=== PATIENT | female | born 1985 | race Caucasian/White ===

== ENCOUNTER 2021-08-24 15:43 | Inpatient (IN) | payer SELFPAY ==
[2021-08-24 16:32] LABS: Actual Bicarbonate (HCO3v) 4 mEq/L (22-28); Base Excess -26.3 mEq/L (-2.0 to +3.0); Calcium, Ionized (venous) 1.29 mmol/L (1.16-1.32); Chloride (VBG) 98 mmol/L (98-106); Hemoglobin (Hb) 10.5 g/dL (11.7-15.5); Potassium (VBG) 5.82 mmol/L (3.70-5.30); Puncture Site Other Site; Sodium 128.4 mmol/L (133-146); pH (venous) 6.97 (7.32-7.43)
[2021-08-24 16:37] LABS: #Basophils 0.1 10x3/uL (0.0-0.2); #Eosinphils 0.1 10x3/uL (0.0-0.5); #Monocytes 0.5 10x3/uL (0.0-1.1); #Neutrophils 6.3 10x3/uL (1.5-8.4); %Basophils 1.6 % (0.0-2.0); %Lymphocytes 11.6 % (18.0-47.0); %Monocytes 6.5 % (0.0-10.0); %Neutrophils 76.3 % (40.0-75.0); Mean Corpuscular HGB CONC 30.2 g/dL (32.0-36.0); Mean Corpuscular Hemoglobin 27.1 pg (27.0-33.0); Mean Corpuscular Volume 89.6 fl (81.6-98.3); Mean Platelet Volume 10.8 fl (7.4-10.4); Platelet Count 224 10x3/uL (150-450); RBC Distribution Width 15.9 % (11.5-14.5); Red Blood Cell (RBC) Count 3.47 10x6/uL (3.90-5.03); White Blood Cell (WBC) Count 8.3 10x3/uL (3.5-10.5)
[2021-08-24 16:38] LABS: Hemoglobin 9.4 g/dL (12.0-15.5)
[2021-08-24 16:46] LABS: Phosphorus 4.4 mg/dL (2.3-4.7)
[2021-08-24 16:48] LABS: ALT (SGPT) 16 U/L (8-55); AST (SGOT) 12 U/L (5-34); Albumin 3.9 g/dL (3.5-5.0); Alkaline Phosphatase 189 U/L (40-110); BUN (Urea Nitrogen) 19 mg/dL (7.0-18.7); Bilirubin, Total 0.3 mg/dL (0.2-1.2); Calc. Creatinine Clearance 0 mL/min (70-130); Calcium 8.9 mg/dL (7.8-10.44); Chloride 97 mmol/L (98-107); Globulin 3.6 g/dL (2.4-3.5); Lipase 14 U/L (8-78); Magnesium 2.1 mg/dL (1.6-2.6); Protein, Total 7.5 g/dL (6.0-8.3); Sodium 128 mmol/L (136-145)
[2021-08-24 16:57] LABS: Carbon Dioxide Less than 8 mmol/L (22-29); Glucose 766 mg/dL (70-105)
[2021-08-24] MEDS ORDERED: INSULIN REGULAR IN 0.9 % NACL 100 UNIT/100 ML BAG ONE (17:14)
[2021-08-24] MEDS ORDERED: Dextrose 5 %-0.45 % NaCl 1,000 ML IV PRN (17:38)
[2021-08-24] MEDS ORDERED: Sodium Chloride 0.9% 1,000 ML IV PRN ×4 (17:38)
[2021-08-24] MEDS ORDERED: D5 1/2 NS w/20 mEq KCL 1,000 ML IV PRN (17:38)
[2021-08-24] MEDS ORDERED: Electrolyte Replacement Protocol 1 EACH IVPB SCH (17:38)
[2021-08-24] MEDS ORDERED: Acetaminophen 325 MG TAB PO PRN (17:41)
[2021-08-24 18:06] LABS: BHCG - Serum Negative (NEGATIVE); Pregs Control Background? CLEAR/WHITE (CLR/WHITE); Pregs Control Bar Appear? YES (CONTROL BAR)
[2021-08-24 19:26] LABS: BUN (Urea Nitrogen) 21 mg/dL (7.0-18.7); Calc. Creatinine Clearance 0 mL/min (70-130); Calcium 8.7 mg/dL (7.8-10.44); Chloride 98 mmol/L (98-107); Magnesium 2.1 mg/dL (1.6-2.6); Potassium 5.7 mmol/L (3.5-5.1); Sodium 130 mmol/L (136-145)
[2021-08-24 19:29] LABS: Carbon Dioxide Less than 8 mmol/L (22-29); Glucose 769 mg/dL (70-105)
[2021-08-24 19:33] LABS: Bilirubin Neg (Negative); Blood, Urine 25 (Negative); Glucose, Urine (Dipstick) >=1000 mg/dL (Negative); Ketone, Urine 150 mg/dL (Negative); Leukocyte Negative (Negative); Nitrite Negative (Negative); Protein, Urine (Dipstick) 30 mg/dl (Neg-Trace); Urobilinogen Normal mg/dL (Less than 2)
[2021-08-24 19:36] LABS: Clarity Clear (Clear)
[2021-08-24 19:57] LABS: SARS-CoV-2 NAA Rapid Test Not Detected (NotDetected)
[2021-08-24 20:02] LABS: RBC/HPF 0-3 HPF (0-3); Squamous Epithelial 0-3 HPF (0-3); WBC/HPF 0-3 HPF (0-3); Yeast-Budding Rare HPF (None Seen)
[2021-08-24 20:37] LABS: ALT (SGPT) 14 U/L (8-55); AST (SGOT) 17 U/L (5-34); Albumin 3.4 g/dL (3.5-5.0); Alkaline Phosphatase 170 U/L (40-110); BUN (Urea Nitrogen) 21 mg/dL (7.0-18.7); Bilirubin, Total 0.2 mg/dL (0.2-1.2); Calc. Creatinine Clearance 0 mL/min (70-130); Calcium 8.3 mg/dL (7.8-10.44); Chloride 103 mmol/L (98-107); Globulin 3.3 g/dL (2.4-3.5); Potassium 4.9 mmol/L (3.5-5.1); Protein, Total 6.7 g/dL (6.0-8.3); Sodium 132 mmol/L (136-145)
[2021-08-24 20:40] LABS: Carbon Dioxide Less than 8 mmol/L (22-29); Glucose 649 mg/dL (70-105)
[2021-08-24] MEDS ORDERED: INSULIN REGULAR IN 0.9 % NACL 100 UNIT in Premix Bag 1 BAG IVPB SCH (21:00)
[2021-08-24 21:43] LABS: BUN (Urea Nitrogen) 22 mg/dL (7.0-18.7); Calc. Creatinine Clearance 51 mL/min (70-130); Calcium 8.1 mg/dL (7.8-10.44); Chloride 106 mmol/L (98-107); Potassium 4.4 mmol/L (3.5-5.1); Sodium 133 mmol/L (136-145)
[2021-08-24 21:44] LABS: Carbon Dioxide Less than 8 mmol/L (22-29); Glucose 552 mg/dL (70-105)
[2021-08-24] MEDS: Sodium Bicarbonate 50 MEQ, Admixture Fee 1 EACH in Sodium Chloride 0.45% 1,000 ML IV SCH (21:52)
[2021-08-24] MEDS: Gabapentin 400 MG CAP PO SCH (22:32)
[2021-08-24] MEDS ORDERED: Lorazepam 2 MG/ML VIAL SLOW IVP SCH (23:15)
[2021-08-24 23:56] LABS: Actual Bicarbonate (HCO3v) 7 mEq/L (22-28); Base Excess -20.7 mEq/L (-2.0 to +3.0); Calcium, Ionized (venous) 1.25 mmol/L (1.16-1.32); Chloride (VBG) 110 mmol/L (98-106); Hemoglobin (Hb) 8.6 g/dL (11.7-15.5); Potassium (VBG) 3.85 mmol/L (3.70-5.30); Puncture Site Other Site
[2021-08-25 00:13] LABS: Anion Gap 23 mmol/L (10-20); BUN (Urea Nitrogen) 20 mg/dL (7.0-18.7); Calc. Creatinine Clearance 63 mL/min (70-130); Calcium 8.2 mg/dL (7.8-10.44); Chloride 111 mmol/L (98-107); Glucose 268 mg/dL (70-105); Potassium 3.8 mmol/L (3.5-5.1); Sodium 138 mmol/L (136-145)
[2021-08-25] MEDS: Pramipexole Di-HCl 0.25 MG TAB PO SCH ×4 (00:15→20:58)
[2021-08-25] MEDS: Sucralfate 1 GM TAB PO SCH ×5 (00:15→20:59)
[2021-08-25] MEDS: Tacrolimus 1 MG CAP PO SCH ×4 (00:15→20:59)
[2021-08-25 00:24] LABS: Carbon Dioxide 8 mmol/L (22-29)
[2021-08-25] MEDS ORDERED: Prevnar 13-Val Conj/PF 0.5 ML SYRINGE IM ONE (00:30)
[2021-08-25] MEDS: Potassium Chloride 20 MEQ in Premix Bag 1 BAG IVPB SCH ×2 (00:56→04:09)
[2021-08-25] MEDS: Lactated Ringer's 1,000 ML IV SCH ×2 (00:56→11:01)
[2021-08-25] MEDS: D5 1/2 NS w/40 mEq KCL 1,000 ML IV SCH ×4 (01:07→20:57)
[2021-08-25] MEDS ORDERED: Dextrose 50% Abboject 50 ML SYRINGE SLOW IVP PRN ×2 (02:15→11:16)
[2021-08-25] MEDS ORDERED: Dextrose 50% Abboject 50 ML SYRINGE IVP PRN (02:15)
[2021-08-25] MEDS ORDERED: Dextrose 5% in Water 1,000 ML IV PRN ×2 (02:15→11:16)
[2021-08-25 04:40] LABS: Anion Gap 20 mmol/L (10-20); BUN (Urea Nitrogen) 16 mg/dL (7.0-18.7); Calc. Creatinine Clearance 67 mL/min (70-130); Calcium 7.8 mg/dL (7.8-10.44); Chloride 113 mmol/L (98-107); Glucose 221 mg/dL (70-105); Potassium 4.6 mmol/L (3.5-5.1); Sodium 137 mmol/L (136-145)
[2021-08-25 04:47] LABS: Carbon Dioxide 9 mmol/L (22-29)
[2021-08-25 07:44] LABS: Anion Gap 17 mmol/L (10-20); BUN (Urea Nitrogen) 16 mg/dL (7.0-18.7); Calc. Creatinine Clearance 78 mL/min (70-130); Calcium 7.8 mg/dL (7.8-10.44); Carbon Dioxide 10 mmol/L (22-29); Chloride 111 mmol/L (98-107); Glucose 224 mg/dL (70-105); Potassium 4.4 mmol/L (3.5-5.1); Sodium 134 mmol/L (136-145)
[2021-08-25] MEDS ORDERED: Lorazepam 2 MG/ML VIAL SLOW IVP PRN ×2 (08:02→19:52)
[2021-08-25] MEDS ORDERED: Lorazepam 2 MG/ML VIAL SLOW IVP SCH (08:15)
[2021-08-25] MEDS: Sodium Bicarbonate 50 MEQ, Admixture Fee 1 EACH in Sodium Chloride 0.45% 1,000 ML IV SCH (08:26)
[2021-08-25] MEDS: Gabapentin 400 MG CAP PO SCH ×4 (08:27→20:58)
[2021-08-25] MEDS ORDERED: Enoxaparin Sodium 30 MG/0.3 ML SYRINGE SC SCH (09:00)
[2021-08-25] MEDS ORDERED: Lantus 1000 UNITS/10 ML VIAL SC SCH ×2 (11:15→21:00)
[2021-08-25] MEDS ORDERED: Electrolyte Replacement Protocol 1 EACH FS SCH (11:30)
[2021-08-25 12:00] LABS: Anion Gap 10 mmol/L (10-20); BUN (Urea Nitrogen) 11 mg/dL (7.0-18.7); Calc. Creatinine Clearance 89 mL/min (70-130); Calcium 7.9 mg/dL (7.8-10.44); Carbon Dioxide 18 mmol/L (22-29); Chloride 112 mmol/L (98-107); Glucose 132 mg/dL (70-105); Potassium 4.6 mmol/L (3.5-5.1); Sodium 135 mmol/L (136-145)
[2021-08-25 13:21] LABS: #Monocytes 0.9 10x3/uL (0.0-1.1); #Neutrophils 6.9 10x3/uL (1.5-8.4); %Basophils 0.2 % (0.0-2.0); %Eosinophils 0.1 % (0.0-6.0); %Lymphocytes 6.9 % (18.0-47.0); %Monocytes 10.4 % (0.0-10.0); %Neutrophils 81.8 % (40.0-75.0); Hemoglobin 7.4 g/dL (12.0-15.5); Mean Corpuscular HGB CONC 31.1 g/dL (32.0-36.0); Mean Corpuscular Hemoglobin 27.8 pg (27.0-33.0); Mean Corpuscular Volume 89.5 fl (81.6-98.3); Mean Platelet Volume 10.4 fl (7.4-10.4); Platelet Count 272 10x3/uL (150-450); RBC Distribution Width 15.9 % (11.5-14.5); Red Blood Cell (RBC) Count 2.66 10x6/uL (3.90-5.03); White Blood Cell (WBC) Count 8.5 10x3/uL (3.5-10.5)
[2021-08-25 13:32] LABS: Glucose 155 mg/dL (70-105)
[2021-08-25] MEDS ORDERED: DC CCU Insulin Drip FS ONE (14:00)
[2021-08-25] MEDS ORDERED: Dexmedetomidine In 0.9 % NaCl 100 ML ONE (16:06)
[2021-08-25] MEDS ORDERED: Dexmedetomidine In 0.9 % NaCl 400 MCG in Premix Bag 1 BAG IVPB SCH (16:15)
[2021-08-25 17:47] LABS: Anion Gap 7 mmol/L (10-20); BUN (Urea Nitrogen) 8 mg/dL (7.0-18.7); Calc. Creatinine Clearance 97 mL/min (70-130); Calcium 7.8 mg/dL (7.8-10.44); Carbon Dioxide 19 mmol/L (22-29); Chloride 110 mmol/L (98-107); Glucose 211 mg/dL (70-105); Potassium 4.3 mmol/L (3.5-5.1); Sodium 132 mmol/L (136-145)
[2021-08-25] MEDS ORDERED: Labetalol HCl 100 MG/20 ML VIAL SLOW IVP PRN (19:41)
[2021-08-25] MEDS ORDERED: cloNIDine 0.1 MG TAB PO PRN (19:41)
[2021-08-25] MEDS ORDERED: hydrALAZINE 20 MG/ML VIAL SLOW IVP PRN (19:41)
[2021-08-25] MEDS ORDERED: Sodium Chloride 0.65% Nasal 44 ML BOT EA NARE PRN (19:41)
[2021-08-25] MEDS ORDERED: Acetaminophen 650 MG Suppository PR PRN (19:41)
[2021-08-25] MEDS ORDERED: Artificial Tear Sol 15 ML BOT EA EYE PRN (19:41)
[2021-08-25] MEDS ORDERED: Calcium Carbonate 500 MG ChewTAB PO PRN (19:41)
[2021-08-25] MEDS ORDERED: diphenhydrAMINE 25 MG CAP PO PRN (19:41)
[2021-08-25] MEDS ORDERED: Lorazepam 0.5 MG TAB PO PRN (19:50)
[2021-08-25] MEDS: HumaLOG 300 UNITS/3 ML VIAL SC PRN (21:13)
[2021-08-26 04:41] LABS: #Eosinphils 0.1 10x3/uL (0.0-0.5); #Monocytes 0.5 10x3/uL (0.0-1.1); #Neutrophils 6.5 10x3/uL (1.5-8.4); %Basophils 0.2 % (0.0-2.0); %Lymphocytes 14.4 % (18.0-47.0); %Monocytes 6.5 % (0.0-10.0); %Neutrophils 77.5 % (40.0-75.0); Hemoglobin 7.7 g/dL (12.0-15.5); Mean Corpuscular HGB CONC 33.2 g/dL (32.0-36.0); Mean Corpuscular Hemoglobin 27.7 pg (27.0-33.0); Mean Corpuscular Volume 83.5 fl (81.6-98.3); Mean Platelet Volume 10.5 fl (7.4-10.4); Platelet Count 280 10x3/uL (150-450); RBC Distribution Width 16.5 % (11.5-14.5); Red Blood Cell (RBC) Count 2.78 10x6/uL (3.90-5.03); White Blood Cell (WBC) Count 8.3 10x3/uL (3.5-10.5)
[2021-08-26] MEDS: Acetaminophen 500 MG TAB PO PRN (04:43)
[2021-08-26 05:02] LABS: Anion Gap 12 mmol/L (10-20); BUN (Urea Nitrogen) 5 mg/dL (7.0-18.7); Calc. Creatinine Clearance 101 mL/min (70-130); Calcium 8.3 mg/dL (7.8-10.44); Carbon Dioxide 19 mmol/L (22-29); Chloride 106 mmol/L (98-107); Glucose 223 mg/dL (70-105); Magnesium 1.3 mg/dL (1.6-2.6); Phosphorus 1.6 mg/dL (2.3-4.7); Potassium 4.4 mmol/L (3.5-5.1); Sodium 133 mmol/L (136-145)
[2021-08-26] MEDS: HumaLOG 300 UNITS/3 ML VIAL SC PRN ×2 (06:09→19:37)
[2021-08-26] MEDS: Magnesium 2 GM/50 ML(in water) 2 GM in Premix Bag 1 BAG IVPB SCH ×2 (06:09→09:03)
[2021-08-26 06:48] LABS: Bilirubin Neg (Negative); Blood, Urine 10 (Negative); Glucose, Urine (Dipstick) 250 mg/dL (Negative); Ketone, Urine Negative (Negative); Leukocyte 500 (Negative); Nitrite Negative (Negative); Protein, Urine (Dipstick) 30 mg/dl (Neg-Trace); Specific Gravity, Urine 1.015 (1.002-1.036); Urobilinogen Normal mg/dL (Less than 2)
[2021-08-26 06:49] LABS: Clarity Slightly Cloudy (Clear)
[2021-08-26 06:50] LABS: Urine Culture Reflex No No
[2021-08-26 06:59] LABS: Bacteria/HPF Rare-Few HPF (None Seen); RBC/HPF 0-3 HPF (0-3); Squamous Epithelial 0-3 HPF (0-3); Transitional Epithelial 0-3 HPF (None Seen); WBC/HPF 21-50 HPF (0-3); Yeast-Budding 1+ HPF (None Seen); Yeast-Hyphae Rare HPF (None Seen)
[2021-08-26] MEDS: D5 1/2 NS w/40 mEq KCL 1,000 ML IV SCH (07:17)
[2021-08-26] MEDS ORDERED: cefTRIAXone\\ROCEPHIN 2 GM in Sodium Chloride 0.9% 100 ML IVPB SCH (07:48)
[2021-08-26] MEDS: Sucralfate 1 GM TAB PO SCH ×4 (08:24→20:34)
[2021-08-26] MEDS: Gabapentin 400 MG CAP PO SCH ×3 (08:25→20:34)
[2021-08-26] MEDS: Enoxaparin Sodium 40 MG/0.4 ML SYRINGE SC SCH (08:25)
[2021-08-26] MEDS: Pramipexole Di-HCl 0.25 MG TAB PO SCH ×2 (08:26→22:03)
[2021-08-26] MEDS: Tacrolimus 1 MG CAP PO SCH ×2 (08:26→22:02)
[2021-08-26] MEDS ORDERED: Potassium Phosphate 15 MMOL in Sodium Chloride 0.9% 100 ML IVPB SCH (09:00)
[2021-08-26] MEDS ORDERED: Lantus 1000 UNITS/10 ML VIAL SC SCH ×2 (09:00→21:00)
[2021-08-26] MEDS ORDERED: Fluconazole 100 MG TAB PO SCH (09:00)
[2021-08-26 11:09] LABS: Actual Bicarbonate (HCO3a) 21.5 mEq/L (22-28); Base Excess (BEa) -1.9 mEq/L (-2.0 to +3.0); CO2 Tension 30.5 mmHg (35.0-45.0); Calcium, Ionized (arterial) 1.19 mmol/L (1.12-1.30); Carboxyhemoglobin (COHb) 1.6 gm% (0.0-3.0); Hemoglobin (Hb) 7.8 g/dL (12.0-16.0); O2 Tension (PaO2), arterial 99.3 mmHg (80.0-100.0); Puncture Site RRA; pH, Arterial 7.47 (7.35-7.45)
[2021-08-26 11:15] LABS: ALV-art Gradient 575.575 mmHg (0-20)
[2021-08-26] MEDS ORDERED: Vancomycin HCl 750 MG in Sodium Chloride 0.9% 250 ML 250 ML IVPB SCH (11:30)
[2021-08-26] MEDS ORDERED: Furosemide 40 MG/4 ML VIAL SLOW IVP SCH ×3 (11:45→18:00)
[2021-08-26 14:04] LABS: ALT (SGPT) 8 U/L (8-55); AST (SGOT) 16 U/L (5-34); Albumin 2.6 g/dL (3.5-5.0); Alkaline Phosphatase 160 U/L (40-110); Anion Gap 9 mmol/L (10-20); BUN (Urea Nitrogen) 4 mg/dL (7.0-18.7); Bilirubin, Total 0.3 mg/dL (0.2-1.2); Calc. Creatinine Clearance 103 mL/min (70-130); Calcium 8.2 mg/dL (7.8-10.44); Carbon Dioxide 22 mmol/L (22-29); Chloride 103 mmol/L (98-107); Globulin 2.9 g/dL (2.4-3.5); Glucose 231 mg/dL (70-105); Magnesium 2.5 mg/dL (1.6-2.6); Potassium 4.1 mmol/L (3.5-5.1); Protein, Total 5.5 g/dL (6.0-8.3); Sodium 130 mmol/L (136-145)
[2021-08-26 14:05] LABS: #Eosinphils 0.2 10x3/uL (0.0-0.5); #Monocytes 0.6 10x3/uL (0.0-1.1); #Neutrophils 6.3 10x3/uL (1.5-8.4); %Basophils 0.3 % (0.0-2.0); %Lymphocytes 11.8 % (18.0-47.0); %Monocytes 6.9 % (0.0-10.0); %Neutrophils 78.5 % (40.0-75.0); Hemoglobin 7.4 g/dL (12.0-15.5); Mean Corpuscular HGB CONC 32.3 g/dL (32.0-36.0); Mean Corpuscular Hemoglobin 27.2 pg (27.0-33.0); Mean Corpuscular Volume 84.2 fl (81.6-98.3); Mean Platelet Volume 9.7 fl (7.4-10.4); Platelet Count 267 10x3/uL (150-450); RBC Distribution Width 16.4 % (11.5-14.5); Red Blood Cell (RBC) Count 2.72 10x6/uL (3.90-5.03)
[2021-08-26 14:07] LABS: Phosphorus 1.5 mg/dL (2.3-4.7)
[2021-08-26] MEDS: metroNIDAZOLE 500 MG in Premix Bag 1 BAG IVPB SCH ×2 (15:37→22:04)
[2021-08-26 16:57] LABS: Legionella Urinary Ag Negative (Negative); Strep pneumo Urine Ag NEGATIVE (NEGATIVE)
[2021-08-26] MEDS: Fluconazole In NaCl,Iso-Osm 400 MG in Premix Bag 1 BAG IVPB SCH (17:09)
[2021-08-26 17:17] LABS: Phosphorus 2.7 mg/dL (2.3-4.7); Potassium 3.9 mmol/L (3.5-5.1)
[2021-08-26] MEDS: Vancomycin HCl 500 MG in Sodium Chloride 0.9% 100 ML IVPB SCH (20:23)
[2021-08-27] MEDS: Ondansetron PF 4 MG/2 ML Vial IVP PRN ×3 (01:34→22:50)
[2021-08-27] MEDS: Acetaminophen 500 MG TAB PO PRN ×3 (02:45→11:54)
[2021-08-27] MEDS: Vancomycin HCl 500 MG in Sodium Chloride 0.9% 100 ML IVPB SCH ×2 (03:11→11:31)
[2021-08-27] MEDS ORDERED: Sodium Chloride 0.9% 100 ML ONE (03:13)
[2021-08-27 04:35] LABS: Anion Gap 16 mmol/L (10-20); BUN (Urea Nitrogen) 7 mg/dL (7.0-18.7); Calc. Creatinine Clearance 95 mL/min (70-130); Calcium 8.1 mg/dL (7.8-10.44); Carbon Dioxide 23 mmol/L (22-29); Chloride 101 mmol/L (98-107); Glucose 146 mg/dL (70-105); Magnesium 1.6 mg/dL (1.6-2.6); Phosphorus 2.7 mg/dL (2.3-4.7); Potassium 3.4 mmol/L (3.5-5.1); Sodium 137 mmol/L (136-145)
[2021-08-27 04:55] LABS: Syphilis Antibody Nonreactive (Nonreactive)
[2021-08-27] MEDS ORDERED: Magnesium 2 GM/50 ML(in water) 2 GM in Premix Bag 1 BAG IVPB SCH ×2 (05:00→06:30)
[2021-08-27] MEDS ORDERED: Potassium Chloride 20 MEQ TAB PO SCH (05:00)
[2021-08-27] MEDS: metroNIDAZOLE 500 MG in Premix Bag 1 BAG IVPB SCH (06:01)
[2021-08-27] MEDS: HumaLOG 300 UNITS/3 ML VIAL SC PRN ×3 (06:40→20:10)
[2021-08-27] MEDS: Gabapentin 400 MG CAP PO SCH ×3 (07:51→19:58)
[2021-08-27] MEDS: Sucralfate 1 GM TAB PO SCH ×4 (07:51→19:59)
[2021-08-27] MEDS: Tacrolimus 1 MG CAP PO SCH ×2 (07:52→20:03)
[2021-08-27] MEDS: Pramipexole Di-HCl 0.25 MG TAB PO SCH ×2 (07:52→20:03)
[2021-08-27] MEDS: Enoxaparin Sodium 40 MG/0.4 ML SYRINGE SC SCH (07:59)
[2021-08-27] MEDS ORDERED: cefTRIAXone\\ROCEPHIN 2 GM in Sodium Chloride 0.9% 100 ML IVPB SCH (09:00)
[2021-08-27] MEDS ORDERED: Lantus 1000 UNITS/10 ML VIAL SC SCH (09:00)
[2021-08-27] MEDS ORDERED: Norepinephrine 8 MG/0.9% NS 250 ML ONE (10:16)
[2021-08-27] MEDS ORDERED: Norepinephrine 8 MG/0.9% NS 250 ML IVPB SCH (10:30)
[2021-08-27] MEDS: Albumin 25% 25 GM/100 ML BOT IVPB SCH ×3 (11:25→23:50)
[2021-08-27 11:39] LABS: Vancomycin, Trough 10.7 ug/mL
[2021-08-27] MEDS: Cefepime 2 GM in Sodium Chloride 0.9% 100 ML IVPB SCH ×2 (12:08→19:58)
[2021-08-27] MEDS: HYDROcodone/Acetaminophen 5/325 mg Tablet PO PRN ×2 (13:26→18:50)
[2021-08-27] MEDS: Fluconazole In NaCl,Iso-Osm 400 MG in Premix Bag 1 BAG IVPB SCH (16:09)
[2021-08-27 18:36] LABS: Amphetamine Not Detected (NotDetected); Barbiturates Screen Not Detected (NotDetected); Benzodiazepine Screen Detected (NotDetected); Cocaine Metabolite Screen Not Detected (NotDetected); Methadone Not Detected (NotDetected); Methamphetamine Not Detected (NotDetected); Opiate Screen Detected (NotDetected); Oxycodone Screen Not Detected (NotDetected); Phencyclidine (PCP) Not Detected (NotDetected); THC/Cannabinoid Screen Not Detected (NotDetected); Tricyclic Screen Not Detected (NotDetected)
[2021-08-27] MEDS: Vancomycin HCl 750 MG in Sodium Chloride 0.9% 250 ML 250 ML IVPB SCH (19:58)
[2021-08-27] MEDS: Famotidine 20 MG TAB PO SCH (20:00)
[2021-08-28] MEDS: Vancomycin HCl 750 MG in Sodium Chloride 0.9% 250 ML 250 ML IVPB SCH (03:45)
[2021-08-28] MEDS: Cefepime 2 GM in Sodium Chloride 0.9% 100 ML IVPB SCH ×3 (04:01→20:56)
[2021-08-28 04:15] LABS: #Eosinphils 0.6 10x3/uL (0.0-0.5); #Monocytes 0.3 10x3/uL (0.0-1.1); #Neutrophils 4.6 10x3/uL (1.5-8.4); %Basophils 0.6 % (0.0-2.0); %Eosinophils 8.4 % (0.0-6.0); %Lymphocytes 18.8 % (18.0-47.0); %Monocytes 4.4 % (0.0-10.0); %Neutrophils 67.5 % (40.0-75.0); Hemoglobin 6.5 g/dL (12.0-15.5); Mean Corpuscular Hemoglobin 27.8 pg (27.0-33.0); Mean Corpuscular Volume 86.8 fl (81.6-98.3); Mean Platelet Volume 10.4 fl (7.4-10.4); Platelet Count 211 10x3/uL (150-450); RBC Distribution Width 17.2 % (11.5-14.5); Red Blood Cell (RBC) Count 2.34 10x6/uL (3.90-5.03); White Blood Cell (WBC) Count 6.8 10x3/uL (3.5-10.5)
[2021-08-28 04:22] LABS: Anion Gap 11 mmol/L (10-20); BUN (Urea Nitrogen) 18 mg/dL (7.0-18.7); Calc. Creatinine Clearance 83 mL/min (70-130); Calcium 8.3 mg/dL (7.8-10.44); Carbon Dioxide 23 mmol/L (22-29); Chloride 109 mmol/L (98-107); Glucose 160 mg/dL (70-105); Iron 9 ug/dL (50-170); Iron Binding Capacity, Total 154 mcg/dL (265-497); Magnesium 2.3 mg/dL (1.6-2.6); Potassium 4.1 mmol/L (3.5-5.1); Sodium 139 mmol/L (136-145)
[2021-08-28] MEDS: Ondansetron PF 4 MG/2 ML Vial IVP PRN ×2 (06:15→14:34)
[2021-08-28] MEDS: HumuLIN 70/30 (300 UNITS/3 ML VIAL) SC SCH ×2 (08:20→18:30)
[2021-08-28] MEDS: Enoxaparin Sodium 40 MG/0.4 ML SYRINGE SC SCH (08:20)
[2021-08-28] MEDS: Sucralfate 1 GM TAB PO SCH ×4 (08:20→21:09)
[2021-08-28] MEDS: Tacrolimus 1 MG CAP PO SCH ×2 (08:21→21:09)
[2021-08-28] MEDS: Famotidine 20 MG TAB PO SCH ×2 (08:21→20:56)
[2021-08-28] MEDS: Furosemide 40 MG TAB PO SCH ×2 (08:21→14:34)
[2021-08-28] MEDS: Gabapentin 400 MG CAP PO SCH ×3 (08:21→20:55)
[2021-08-28] MEDS: Pramipexole Di-HCl 0.25 MG TAB PO SCH ×2 (08:21→20:56)
[2021-08-28] MEDS: HYDROcodone/Acetaminophen 5/325 mg Tablet PO PRN ×2 (08:47→14:35)
[2021-08-28] MEDS: HumaLOG 300 UNITS/3 ML VIAL SC PRN (09:56)
[2021-08-28] MEDS: Albumin 25% 25 GM/100 ML BOT IVPB SCH ×3 (10:57→23:37)
[2021-08-28 12:12] LABS: Hemoglobin A1c 10.6 % (4.0-6.0)
[2021-08-28] MEDS: Fluconazole 100 MG TAB PO SCH (17:05)
[2021-08-28 21:18] LABS: Vancomycin, Trough 12.4 ug/mL
[2021-08-29] MEDS: HYDROcodone/Acetaminophen 5/325 mg Tablet PO PRN ×2 (02:53→12:52)
[2021-08-29] MEDS: Cefepime 2 GM in Sodium Chloride 0.9% 100 ML IVPB SCH ×3 (04:54→20:13)
[2021-08-29 05:01] LABS: #Eosinphils 0.6 10x3/uL (0.0-0.5); #Monocytes 0.4 10x3/uL (0.0-1.1); #Neutrophils 4.8 10x3/uL (1.5-8.4); %Basophils 0.1 % (0.0-2.0); %Eosinophils 7.7 % (0.0-6.0); %Lymphocytes 20.9 % (18.0-47.0); %Monocytes 5.7 % (0.0-10.0); %Neutrophils 65.3 % (40.0-75.0); Mean Corpuscular HGB CONC 32.3 g/dL (32.0-36.0); Mean Corpuscular Hemoglobin 27.6 pg (27.0-33.0); Mean Corpuscular Volume 85.6 fl (81.6-98.3); Mean Platelet Volume 10.2 fl (7.4-10.4); Platelet Count 214 10x3/uL (150-450); RBC Distribution Width 16.3 % (11.5-14.5); Red Blood Cell (RBC) Count 3.26 10x6/uL (3.90-5.03); White Blood Cell (WBC) Count 7.4 10x3/uL (3.5-10.5)
[2021-08-29 05:06] LABS: Anion Gap 14 mmol/L (10-20); BUN (Urea Nitrogen) 17 mg/dL (7.0-18.7); Calc. Creatinine Clearance 76 mL/min (70-130); Carbon Dioxide 23 mmol/L (22-29); Chloride 107 mmol/L (98-107); Glucose 98 mg/dL (70-105); Magnesium 1.4 mg/dL (1.6-2.6); Potassium 3.4 mmol/L (3.5-5.1); Sodium 141 mmol/L (136-145)
[2021-08-29] MEDS ORDERED: Potassium Chloride 40 MEQ in Premix Bag 1 BAG IVPB SCH (07:00)
[2021-08-29] MEDS ORDERED: Potassium Chloride 20 MEQ TAB PO SCH (07:30)
[2021-08-29] MEDS: Sucralfate 1 GM TAB PO SCH ×4 (08:14→20:14)
[2021-08-29] MEDS: Magnesium 2 GM/50 ML(in water) 2 GM in Premix Bag 1 BAG IVPB SCH ×2 (08:14→10:44)
[2021-08-29] MEDS: Potassium Chloride 20 MEQ in Premix Bag 1 BAG IVPB SCH ×2 (08:15→13:12)
[2021-08-29] MEDS: HumuLIN 70/30 (300 UNITS/3 ML VIAL) SC SCH ×2 (08:40→16:06)
[2021-08-29 09:12] VITALS: BMI 17.4
[2021-08-29] MEDS: Furosemide 40 MG TAB PO SCH ×2 (10:45→13:09)
[2021-08-29] MEDS: Tacrolimus 1 MG CAP PO SCH ×2 (10:45→20:14)
[2021-08-29] MEDS: Famotidine 20 MG TAB PO SCH ×2 (10:46→20:14)
[2021-08-29] MEDS: Gabapentin 400 MG CAP PO SCH ×3 (10:46→20:14)
[2021-08-29] MEDS: Pramipexole Di-HCl 0.25 MG TAB PO SCH ×2 (10:47→20:14)
[2021-08-29] MEDS: HumaLOG 300 UNITS/3 ML VIAL SC PRN (16:06)
[2021-08-29] MEDS: Fluconazole 100 MG TAB PO SCH (16:07)
[2021-08-30] MEDS: Cefepime 2 GM in Sodium Chloride 0.9% 100 ML IVPB SCH ×3 (04:43→20:23)
[2021-08-30] MEDS: HYDROcodone/Acetaminophen 5/325 mg Tablet PO PRN ×2 (04:43→17:35)
[2021-08-30 04:49] LABS: #Eosinphils 0.4 10x3/uL (0.0-0.5); #Monocytes 0.4 10x3/uL (0.0-1.1); #Neutrophils 3.2 10x3/uL (1.5-8.4); %Basophils 0.5 % (0.0-2.0); %Eosinophils 6.5 % (0.0-6.0); %Monocytes 7.3 % (0.0-10.0); %Neutrophils 54.4 % (40.0-75.0); Hemoglobin 10.1 g/dL (12.0-15.5); Mean Corpuscular HGB CONC 32.4 g/dL (32.0-36.0); Mean Corpuscular Hemoglobin 27.7 pg (27.0-33.0); Mean Corpuscular Volume 85.7 fl (81.6-98.3); Mean Platelet Volume 10.1 fl (7.4-10.4); Platelet Count 206 10x3/uL (150-450); Red Blood Cell (RBC) Count 3.64 10x6/uL (3.90-5.03); White Blood Cell (WBC) Count 5.9 10x3/uL (3.5-10.5)
[2021-08-30 05:05] LABS: Anion Gap 18 mmol/L (10-20); BUN (Urea Nitrogen) 21 mg/dL (7.0-18.7); Calc. Creatinine Clearance 63 mL/min (70-130); Calcium 9.4 mg/dL (7.8-10.44); Carbon Dioxide 23 mmol/L (22-29); Chloride 103 mmol/L (98-107); Glucose 95 mg/dL (70-105); Magnesium 1.9 mg/dL (1.6-2.6); Potassium 5.1 mmol/L (3.5-5.1); Sodium 139 mmol/L (136-145)
[2021-08-30] MEDS: HumuLIN 70/30 (300 UNITS/3 ML VIAL) SC SCH ×2 (08:21→17:31)
[2021-08-30] MEDS: Sucralfate 1 GM TAB PO SCH ×4 (08:22→20:26)
[2021-08-30] MEDS: Gabapentin 400 MG CAP PO SCH ×3 (08:25→20:26)
[2021-08-30] MEDS: Tacrolimus 1 MG CAP PO SCH ×2 (08:26→20:26)
[2021-08-30] MEDS: Famotidine 20 MG TAB PO SCH ×2 (08:26→20:26)
[2021-08-30] MEDS: Pramipexole Di-HCl 0.25 MG TAB PO SCH ×2 (08:26→20:26)
[2021-08-30] MEDS: Ondansetron PF 4 MG/2 ML Vial IVP PRN (10:08)
[2021-08-30] MEDS: HumaLOG 300 UNITS/3 ML VIAL SC PRN ×2 (11:32→20:41)
[2021-08-30 14:11] LABS: Anion Gap 12 mmol/L (10-20); BUN (Urea Nitrogen) 26 mg/dL (7.0-18.7); Calc. Creatinine Clearance 70 mL/min (70-130); Calcium 9.4 mg/dL (7.8-10.44); Carbon Dioxide 28 mmol/L (22-29); Chloride 101 mmol/L (98-107); Glucose 150 mg/dL (70-105); Potassium 4.8 mmol/L (3.5-5.1); Sodium 136 mmol/L (136-145)
[2021-08-30] MEDS: Fluconazole 100 MG TAB PO SCH (17:31)
[2021-08-30] MEDS ORDERED: Aspirin 81 mg Enteric Coated Tablet PO SCH ×2 (19:00→20:15)
[2021-08-30 19:13] LABS: HIV-1 Quantitative, RNA PCR <20 copies/mL (.)
[2021-08-30] MEDS: Atorvastatin Calcium 40 MG TAB PO SCH (20:27)
[2021-08-30 23:08] LABS: Mycoplasma pneumoniae IgG AB 266 U/mL (0-99); Mycoplasma pneumoniae IgM AB Less than 770 U/mL (0-769)
[2021-08-31] MEDS: Cefepime 2 GM in Sodium Chloride 0.9% 100 ML IVPB SCH ×3 (03:31→21:55)
[2021-08-31] MEDS: HYDROcodone/Acetaminophen 5/325 mg Tablet PO PRN ×3 (03:31→21:54)
[2021-08-31 05:34] LABS: #Eosinphils 0.3 10x3/uL (0.0-0.5); #Monocytes 0.5 10x3/uL (0.0-1.1); #Neutrophils 2.7 10x3/uL (1.5-8.4); %Basophils 0.4 % (0.0-2.0); %Eosinophils 6.1 % (0.0-6.0); %Lymphocytes 31.7 % (18.0-47.0); %Monocytes 9.1 % (0.0-10.0); %Neutrophils 52.3 % (40.0-75.0); Mean Corpuscular HGB CONC 31.5 g/dL (32.0-36.0); Mean Corpuscular Hemoglobin 27.5 pg (27.0-33.0); Mean Corpuscular Volume 87.3 fl (81.6-98.3); Mean Platelet Volume 10.3 fl (7.4-10.4); Platelet Count 190 10x3/uL (150-450); RBC Distribution Width 15.9 % (11.5-14.5); Red Blood Cell (RBC) Count 3.63 10x6/uL (3.90-5.03); White Blood Cell (WBC) Count 5.1 10x3/uL (3.5-10.5)
[2021-08-31 05:54] LABS: ALT (SGPT) 7 U/L (8-55); AST (SGOT) 10 U/L (5-34); Albumin 3.3 g/dL (3.5-5.0); Alkaline Phosphatase 124 U/L (40-110); Bilirubin, Direct 0.1 mg/dL (0.1-0.3); Bilirubin, Total 0.3 mg/dL (0.2-1.2); Cardiac Risk 4.3 (Less than 4.5); Cholesterol 99 mg/dl (< 200 Desired); HDL Cholesterol 23 mg/dL (>60 Neg Risk); LDL Cholesterol, Calculated 36 mg/dL; Protein, Total 6.3 g/dL (6.0-8.3); Triglycerides 201 mg/dL (Less than 150)
[2021-08-31 05:55] LABS: Anion Gap 16 mmol/L (10-20); BUN (Urea Nitrogen) 28 mg/dL (7.0-18.7); Calc. Creatinine Clearance 71 mL/min (70-130); Calcium 9.2 mg/dL (7.8-10.44); Carbon Dioxide 25 mmol/L (22-29); Chloride 101 mmol/L (98-107); Glucose 121 mg/dL (70-105); Magnesium 1.7 mg/dL (1.6-2.6); Potassium 5.5 mmol/L (3.5-5.1); Sodium 136 mmol/L (136-145)
[2021-08-31] MEDS ORDERED: Aspirin 81 mg Enteric Coated Tablet PO SCH (09:00)
[2021-08-31] MEDS: HumuLIN 70/30 (300 UNITS/3 ML VIAL) SC SCH ×2 (09:50→16:45)
[2021-08-31] MEDS: Aspirin 81 mg Enteric Coated Tablet PO SCH (09:52)
[2021-08-31] MEDS: Sucralfate 1 GM TAB PO SCH ×4 (09:52→21:51)
[2021-08-31] MEDS: Tacrolimus 1 MG CAP PO SCH ×2 (09:52→21:51)
[2021-08-31] MEDS: Gabapentin 400 MG CAP PO SCH ×3 (09:52→21:52)
[2021-08-31] MEDS: Enoxaparin Sodium 40 MG/0.4 ML SYRINGE SC SCH (09:53)
[2021-08-31] MEDS: Pramipexole Di-HCl 0.25 MG TAB PO SCH ×2 (09:53→21:51)
[2021-08-31] MEDS: Famotidine 20 MG TAB PO SCH ×2 (09:53→21:52)
[2021-08-31 11:28] LABS: Anion Gap 11 mmol/L (10-20); BUN (Urea Nitrogen) 30 mg/dL (7.0-18.7); Calc. Creatinine Clearance 67 mL/min (70-130); Calcium 9.2 mg/dL (7.8-10.44); Carbon Dioxide 29 mmol/L (22-29); Chloride 99 mmol/L (98-107); Glucose 313 mg/dL (70-105); Potassium 5.3 mmol/L (3.5-5.1); Sodium 134 mmol/L (136-145)
[2021-08-31 11:39] LABS: Tacrolimus <0.5 ng/mL (2.0-20.0)
[2021-08-31] MEDS ORDERED: HumaLOG 300 UNITS/3 ML VIAL SC PRN ×2 (12:03→16:31)
[2021-08-31] MEDS ORDERED: Dextrose 5% in Water 1,000 ML IV PRN ×2 (12:03→16:31)
[2021-08-31] MEDS ORDERED: Dextrose 50% Abboject 50 ML SYRINGE SLOW IVP PRN ×2 (12:03→16:31)
[2021-08-31] MEDS: Mycophenolate ER 180 MG TAB PO SCH ×2 (13:03→21:51)
[2021-08-31] MEDS: Fluconazole 100 MG TAB PO SCH (17:00)
[2021-08-31] MEDS: Atorvastatin Calcium 40 MG TAB PO SCH (21:52)
[2021-08-31] MEDS ORDERED: Dextrose 10% in Water 1,000 ML IV SCH (22:00)
[2021-08-31 22:23] LABS: Anion Gap 14 mmol/L (10-20); BUN (Urea Nitrogen) 31 mg/dL (7.0-18.7); Calc. Creatinine Clearance 74 mL/min (70-130); Calcium 9.8 mg/dL (7.8-10.44); Carbon Dioxide 32 mmol/L (22-29); Chloride 97 mmol/L (98-107); Glucose 120 mg/dL (70-105); Potassium 5.6 mmol/L (3.5-5.1); Sodium 137 mmol/L (136-145)
[2021-09-01] MEDS: Cefepime 2 GM in Sodium Chloride 0.9% 100 ML IVPB SCH ×3 (03:45→21:49)
[2021-09-01] MEDS: HYDROcodone/Acetaminophen 5/325 mg Tablet PO PRN ×5 (03:55→21:52)
[2021-09-01 06:17] LABS: Anion Gap 18 mmol/L (10-20); BUN (Urea Nitrogen) 34 mg/dL (7.0-18.7); Calc. Creatinine Clearance 65 mL/min (70-130); Calcium 8.7 mg/dL (7.8-10.44); Carbon Dioxide 25 mmol/L (22-29); Chloride 99 mmol/L (98-107); Glucose 278 mg/dL (70-105); Magnesium 1.7 mg/dL (1.6-2.6); Potassium 5.5 mmol/L (3.5-5.1); Sodium 136 mmol/L (136-145)
[2021-09-01 06:31] LABS: #Eosinphils 0.2 10x3/uL (0.0-0.5); #Monocytes 0.4 10x3/uL (0.0-1.1); #Neutrophils 1.7 10x3/uL (1.5-8.4); %Lymphocytes 41.1 % (18.0-47.0); %Monocytes 10.3 % (0.0-10.0); %Neutrophils 41.9 % (40.0-75.0); Hemoglobin 9.3 g/dL (12.0-15.5); Mean Corpuscular HGB CONC 32.1 g/dL (32.0-36.0); Mean Corpuscular Hemoglobin 27.6 pg (27.0-33.0); Mean Corpuscular Volume 86.1 fl (81.6-98.3); Mean Platelet Volume 11.5 fl (7.4-10.4); Platelet Count 191 10x3/uL (150-450); RBC Distribution Width 15.6 % (11.5-14.5); Red Blood Cell (RBC) Count 3.37 10x6/uL (3.90-5.03); White Blood Cell (WBC) Count 4.2 10x3/uL (3.5-10.5)
[2021-09-01] MEDS ORDERED: NPH, Human Insulin Isophane 300 UNIT/3 ML VIAL SC SCH (09:00)
[2021-09-01] MEDS: Aspirin 81 mg Enteric Coated Tablet PO SCH (09:09)
[2021-09-01] MEDS: Sucralfate 1 GM TAB PO SCH ×4 (09:10→21:46)
[2021-09-01] MEDS: Pramipexole Di-HCl 0.25 MG TAB PO SCH ×2 (09:10→21:46)
[2021-09-01] MEDS: Tacrolimus 1 MG CAP PO SCH ×2 (09:10→21:47)
[2021-09-01] MEDS: Gabapentin 400 MG CAP PO SCH ×3 (09:10→21:47)
[2021-09-01] MEDS: Enoxaparin Sodium 40 MG/0.4 ML SYRINGE SC SCH (09:11)
[2021-09-01] MEDS: Famotidine 20 MG TAB PO SCH ×2 (09:11→21:46)
[2021-09-01] MEDS: Mycophenolate ER 180 MG TAB PO SCH ×2 (09:11→21:46)
[2021-09-01] MEDS ORDERED: Cefepime 2 GM VIAL ONE (13:43)
[2021-09-01 17:27] LABS: Actual Bicarbonate (HCO3a) 29.7 mEq/L (22-28); Base Excess (BEa) 4.4 mEq/L (-2.0 to +3.0); Calcium, Ionized (arterial) 1.14 mmol/L (1.12-1.30); Carboxyhemoglobin (COHb) 0.7 gm% (0.0-3.0); Hemoglobin (Hb) 8.6 g/dL (12.0-16.0); O2 Tension (PaO2), arterial 110.8 mmHg (80.0-100.0); Potassium - ABG Lab 4.5 mmol/L (3.70-5.30); Puncture Site LRA; pH, Arterial 7.41 (7.35-7.45)
[2021-09-01] MEDS: Fluconazole 100 MG TAB PO SCH (18:19)
[2021-09-01] MEDS: Atorvastatin Calcium 40 MG TAB PO SCH (21:46)
[2021-09-01] MEDS: HumaLOG 300 UNITS/3 ML VIAL SC PRN (21:48)
[2021-09-02 01:01] LABS: SARS-CoV-2 PCR by NAA Not Detected (NotDetected)
[2021-09-02] MEDS: HYDROcodone/Acetaminophen 5/325 mg Tablet PO PRN ×3 (04:26→17:19)
[2021-09-02] MEDS: Cefepime 2 GM in Sodium Chloride 0.9% 100 ML IVPB SCH ×3 (04:36→20:48)
[2021-09-02 06:00] LABS: #Eosinphils 0.2 10x3/uL (0.0-0.5); #Monocytes 0.5 10x3/uL (0.0-1.1); #Neutrophils 1.3 10x3/uL (1.5-8.4); %Eosinophils 5.8 % (0.0-6.0); %Lymphocytes 46.5 % (18.0-47.0); %Monocytes 13.3 % (0.0-10.0); %Neutrophils 33.1 % (40.0-75.0); Hemoglobin 9.2 g/dL (12.0-15.5); Mean Corpuscular HGB CONC 32.5 g/dL (32.0-36.0); Mean Corpuscular Hemoglobin 27.8 pg (27.0-33.0); Mean Corpuscular Volume 85.5 fl (81.6-98.3); Mean Platelet Volume 10.1 fl (7.4-10.4); Platelet Count 205 10x3/uL (150-450); RBC Distribution Width 15.2 % (11.5-14.5); Red Blood Cell (RBC) Count 3.31 10x6/uL (3.90-5.03)
[2021-09-02 06:09] LABS: Anion Gap 17 mmol/L (10-20); BUN (Urea Nitrogen) 30 mg/dL (7.0-18.7); Calc. Creatinine Clearance 76 mL/min (70-130); Carbon Dioxide 28 mmol/L (22-29); Chloride 100 mmol/L (98-107); Glucose 79 mg/dL (70-105); Magnesium 1.6 mg/dL (1.6-2.6); Potassium 4.6 mmol/L (3.5-5.1); Sodium 140 mmol/L (136-145)
[2021-09-02] MEDS: Magnesium 2 GM/50 ML(in water) 2 GM in Premix Bag 1 BAG IVPB SCH ×2 (07:56→09:01)
[2021-09-02] MEDS: Sucralfate 1 GM TAB PO SCH ×4 (08:02→20:47)
[2021-09-02] MEDS: Tacrolimus 1 MG CAP PO SCH ×2 (09:02→20:47)
[2021-09-02] MEDS: Famotidine 20 MG TAB PO SCH ×2 (09:03→20:47)
[2021-09-02] MEDS: Pramipexole Di-HCl 0.25 MG TAB PO SCH ×2 (09:03→20:47)
[2021-09-02] MEDS: Aspirin 81 mg Enteric Coated Tablet PO SCH (09:03)
[2021-09-02] MEDS: Gabapentin 400 MG CAP PO SCH ×3 (09:03→20:48)
[2021-09-02] MEDS: Mycophenolate ER 180 MG TAB PO SCH ×2 (09:04→20:47)
[2021-09-02] MEDS ORDERED: Cyclobenzaprine 10 MG TAB PO SCH (11:00)
[2021-09-02] MEDS ORDERED: Propranolol 10 MG TAB PO SCH (11:15)
[2021-09-02] MEDS: hydrOXYzine 25 MG TAB PO PRN ×2 (11:27→20:44)
[2021-09-02] MEDS: Propranolol 10 MG TAB PO SCH ×2 (16:17→20:47)
[2021-09-02] MEDS: Fluconazole 100 MG TAB PO SCH (16:18)
[2021-09-02] MEDS: HumaLOG 300 UNITS/3 ML VIAL SC PRN (18:49)
[2021-09-02] MEDS: Atorvastatin Calcium 40 MG TAB PO SCH (20:47)
[2021-09-03] MEDS: HYDROcodone/Acetaminophen 5/325 mg Tablet PO PRN ×3 (00:53→17:25)
[2021-09-03] MEDS: HumaLOG 300 UNITS/3 ML VIAL SC PRN ×4 (01:52→17:12)
[2021-09-03] MEDS: Cefepime 2 GM in Sodium Chloride 0.9% 100 ML IVPB SCH ×2 (04:40→12:09)
[2021-09-03 05:53] LABS: #Basophils 0.1 10x3/uL (0.0-0.2); #Eosinphils 0.3 10x3/uL (0.0-0.5); #Monocytes 0.7 10x3/uL (0.0-1.1); %Basophils 0.9 % (0.0-2.0); %Eosinophils 4.3 % (0.0-6.0); %Lymphocytes 29.9 % (18.0-47.0); %Monocytes 12.1 % (0.0-10.0); %Neutrophils 52.5 % (40.0-75.0); Hemoglobin 9.3 g/dL (12.0-15.5); Mean Corpuscular HGB CONC 32.3 g/dL (32.0-36.0); Mean Corpuscular Hemoglobin 27.8 pg (27.0-33.0); Mean Corpuscular Volume 86.2 fl (81.6-98.3); Mean Platelet Volume 10.7 fl (7.4-10.4); Platelet Count 228 10x3/uL (150-450); RBC Distribution Width 15.1 % (11.5-14.5); Red Blood Cell (RBC) Count 3.34 10x6/uL (3.90-5.03); White Blood Cell (WBC) Count 5.8 10x3/uL (3.5-10.5)
[2021-09-03 06:09] LABS: Anion Gap 15 mmol/L (10-20); BUN (Urea Nitrogen) 26 mg/dL (7.0-18.7); Calc. Creatinine Clearance 70 mL/min (70-130); Carbon Dioxide 30 mmol/L (22-29); Chloride 97 mmol/L (98-107); Glucose 336 mg/dL (70-105); Magnesium 2.1 mg/dL (1.6-2.6); Potassium 4.8 mmol/L (3.5-5.1); Sodium 137 mmol/L (136-145)
[2021-09-03] MEDS: Famotidine 20 MG TAB PO SCH ×2 (08:21→21:26)
[2021-09-03] MEDS: Gabapentin 400 MG CAP PO SCH ×3 (08:21→21:26)
[2021-09-03] MEDS: Sucralfate 1 GM TAB PO SCH ×4 (08:21→21:26)
[2021-09-03] MEDS: Tacrolimus 1 MG CAP PO SCH ×2 (08:21→21:27)
[2021-09-03] MEDS: Pramipexole Di-HCl 0.25 MG TAB PO SCH ×2 (08:21→21:26)
[2021-09-03] MEDS: Propranolol 10 MG TAB PO SCH ×3 (08:21→21:26)
[2021-09-03] MEDS: Aspirin 81 mg Enteric Coated Tablet PO SCH (08:21)
[2021-09-03] MEDS: Mycophenolate ER 180 MG TAB PO SCH ×2 (08:22→21:26)
[2021-09-03] MEDS: Fluconazole 100 MG TAB PO SCH (17:02)
[2021-09-03] MEDS: HumuLIN 70/30 (300 UNITS/3 ML VIAL) SC SCH (17:08)
[2021-09-03] MEDS ORDERED: HumuLIN 70/30 (300 UNITS/3 ML VIAL) SC SCH (21:00)
[2021-09-03] MEDS: Atorvastatin Calcium 40 MG TAB PO SCH (21:26)
[2021-09-04 05:13] LABS: #Basophils 0.1 10x3/uL (0.0-0.2); #Eosinphils 0.2 10x3/uL (0.0-0.5); #Monocytes 0.8 10x3/uL (0.0-1.1); %Basophils 0.6 % (0.0-2.0); %Eosinophils 2.8 % (0.0-6.0); %Lymphocytes 26.4 % (18.0-47.0); %Monocytes 9.7 % (0.0-10.0); Hemoglobin 9.2 g/dL (12.0-15.5); Mean Corpuscular HGB CONC 31.9 g/dL (32.0-36.0); Mean Corpuscular Hemoglobin 27.8 pg (27.0-33.0); Mean Platelet Volume 10.7 fl (7.4-10.4); Platelet Count 260 10x3/uL (150-450); Red Blood Cell (RBC) Count 3.31 10x6/uL (3.90-5.03); White Blood Cell (WBC) Count 8.3 10x3/uL (3.5-10.5)
[2021-09-04] MEDS: HYDROcodone/Acetaminophen 5/325 mg Tablet PO PRN ×2 (06:00→17:18)
[2021-09-04] MEDS: hydrOXYzine 25 MG TAB PO PRN ×2 (06:00→12:17)
[2021-09-04] MEDS: Sucralfate 1 GM TAB PO SCH ×4 (07:52→21:21)
[2021-09-04] MEDS: HumuLIN 70/30 (300 UNITS/3 ML VIAL) SC SCH ×2 (07:52→17:20)
[2021-09-04] MEDS: Aspirin 81 mg Enteric Coated Tablet PO SCH (08:00)
[2021-09-04] MEDS: Tacrolimus 1 MG CAP PO SCH ×2 (08:00→21:22)
[2021-09-04] MEDS: Famotidine 20 MG TAB PO SCH ×2 (08:01→21:21)
[2021-09-04] MEDS: Gabapentin 400 MG CAP PO SCH ×3 (08:01→21:21)
[2021-09-04] MEDS: Mycophenolate ER 180 MG TAB PO SCH ×2 (08:01→21:22)
[2021-09-04] MEDS: Pramipexole Di-HCl 0.25 MG TAB PO SCH ×2 (08:03→21:21)
[2021-09-04] MEDS: Propranolol 10 MG TAB PO SCH ×3 (08:03→21:22)
[2021-09-04] MEDS: Fluconazole 100 MG TAB PO SCH (17:21)
[2021-09-04] MEDS: Atorvastatin Calcium 40 MG TAB PO SCH (21:21)
[2021-09-05 00:50] VITALS: BP 153/80; TEMP 98.2
== END 2021-09-05 | disposition home or self-care (01) | DRG 637 ==
LOC: CSHERS 15:43 → CSHIMCU 20:56 → CSHTELE 08-26 00:31 → CSHICU 08-26 13:09 → CSHTELE 08-28 16:13
PROVIDERS: ADMIT Student in an Organized Health Care Education/Training Program; ATTEND Hospitalist
PROC: 06PYX3Z Removal of Infusion Device from Lower Vein, External Approach (ICD-10-PCS; principal; 2021-08-25)
PROC: 06HY33Z Insertion of Infusion Device into Lower Vein, Percutaneous Approach (ICD-10-PCS; 2021-08-25)
PROC: 3E043XZ Introduction of Vasopressor into Central Vein, Percutaneous Approach (ICD-10-PCS; 2021-08-27)
PROC: 30233N1 Transfusion of Nonautologous Red Blood Cells into Peripheral Vein, Percutaneous Approach (ICD-10-PCS; 2021-08-28)
DX: E10.10 Type 1 diabetes mellitus with ketoacidosis without coma (principal); G93.41 Metabolic encephalopathy; J96.01 Acute respiratory failure with hypoxia; J69.0 Pneumonitis due to inhalation of food and vomit; I50.33 Acute on chronic diastolic (congestive) heart failure; Z94.83 Pancreas transplant status; I31.3 Pericardial effusion (noninflammatory); R18.8 Other ascites; I13.0 Hypertensive heart and chronic kidney disease with heart failure and stage 1 through stage 4 chronic kidney disease, or unspecified chronic kidney disease; B37.41 Candidal cystitis and urethritis; G45.3 Amaurosis fugax; T86.19 Other complication of kidney transplant; E10.43 Type 1 diabetes mellitus with diabetic autonomic (poly)neuropathy; K31.84 Gastroparesis; K21.9 Gastro-esophageal reflux disease without esophagitis; E10.65 Type 1 diabetes mellitus with hyperglycemia; F32.A Depression, unspecified; I95.9 Hypotension, unspecified; F15.10 Other stimulant abuse, uncomplicated; G25.81 Restless legs syndrome; R33.9 Retention of urine, unspecified; D63.1 Anemia in chronic kidney disease; N30.90 Cystitis, unspecified without hematuria; E87.5 Hyperkalemia; E10.649 Type 1 diabetes mellitus with hypoglycemia without coma; N18.2 Chronic kidney disease, stage 2 (mild); X58.XXXA Exposure to other specified factors, initial encounter; I27.20 Pulmonary hypertension, unspecified; F41.9 Anxiety disorder, unspecified; E10.22 Type 1 diabetes mellitus with diabetic chronic kidney disease; E10.319 Type 1 diabetes mellitus with unspecified diabetic retinopathy without macular edema; Z20.822 Contact with and (suspected) exposure to COVID-19; Y83.8 Other surgical procedures as the cause of abnormal reaction of the patient, or of later complication, without mention of misadventure at the time of the procedure; S42.301D Unspecified fracture of shaft of humerus, right arm, subsequent encounter for fracture with routine healing; Z79.82 Long term (current) use of aspirin; Z91.14 Patient's other noncompliance with medication regimen; Z98.890 Other specified postprocedural states; Z88.0 Allergy status to penicillin; Z88.2 Allergy status to sulfonamides; Z88.8 Allergy status to other drugs, medicaments and biological substances; Z79.4 Long term (current) use of insulin; Z79.899 Other long term (current) drug therapy; Z91.041 Radiographic dye allergy status; Z78.1 Physical restraint status; Z71.51 Drug abuse counseling and surveillance of drug abuser
CPT/HCPCS: 36415; 36416; 36430; 36556; 36600; 70450; 70551; 71045; 71250; 74177; 80048; 80053; 80061; 80076; 80197; 80202; 80306; 81001; 81003; 81015; 82010; 82550; 82728; 82805; 83036; 83540; 83550; 83690; 83735; 83880; 84100; 84145; 84443; 84703; 85025; 85379; 86780; 86850; 86900; 86901; 87040; 87081; 87086; 87449; 87536; 87899; 93005; 93010; 93880; 94760; 96365; 96366; 99292; J0692; J0696; J1450; J1650; J1815; J1940; J2060; J2405; J3370; J3475; J3480; J3490; J7050; J7070; J7120; J7507; J7518; J7999; P9016; P9047; U0002; U0003; U0005